=== PATIENT | female | born 1960 | race Native Hawaiian/Other Pacific Islander ===

== ENCOUNTER 2018-07-06 08:58 | Outpatient (CLI) | payer OTHER ==
[2018-07-06 10:14] LABS: PLATELET COUNT 296 K/uL (152-353)
[2018-07-06 10:30] LABS: POTASSIUM 3.8 mmol/L (3.6-5.2)
== END 2018-07-06 21:13 | disposition home or self-care (01) ==
LOC: LABW 08:58
PROVIDERS: Emergency Medicine
DX: I82.499 Acute embolism and thrombosis of other specified deep vein of unspecified lower extremity (principal); I10 Essential (primary) hypertension; M50.20 Other cervical disc displacement, unspecified cervical region
CPT/HCPCS: 36415; 80053; 80061; 84436; 84443; 84479; 85027

== ENCOUNTER 2018-08-29 11:00 | Outpatient (CLI) | payer OTHER ==
[2018-08-29 11:29] LABS: POTASSIUM 3.7 mmol/L (3.6-5.2)
== END 2018-08-29 22:42 | disposition home or self-care (01) ==
LOC: LABW 11:00
PROVIDERS: Physician Assistant Medical
DX: I10 Essential (primary) hypertension (principal); M54.5 Low back pain; Z79.899 Other long term (current) drug therapy
CPT/HCPCS: 36415; 80053; 83036

== ENCOUNTER 2021-12-13 19:57 | Inpatient (IN) | payer OTHER ==
[2021-12-13] VITALS (8 sets, daily range): BP systolic 113–149; BP diastolic 76–94; TEMP 100.6
[~2021-12-13] VITALS: Ht 152.4 cm; Wt 37.7 kg
[2021-12-13 20:51] LABS: PLATELET COUNT 459 K/uL (152-353)
[2021-12-13 21:00] LABS: POTASSIUM 3.8 mmol/L (3.6-5.2)
[2021-12-14 04:00] VITALS: BP 122/81; TEMP 98.4
[2021-12-14 05:08] VITALS: BP 117/83; TEMP 98.9; Ht 152.4 cm; Wt 37.7 kg
[2021-12-14 08:00] VITALS: BP 124/80; TEMP 97.6
[2021-12-14 12:00] VITALS: BP 118/72; TEMP 98.2
[2021-12-14 16:00] VITALS: BP 135/76; TEMP 97.6
[2021-12-14] MEDS ORDERED: PROAIR HFA108 MCG/AC INH (16:16)
[2021-12-14] MEDS ORDERED: AMLODIPINE BESYLATE PO (16:17)
[2021-12-14] MEDS ORDERED: PREGABALIN75 MG PO (16:18)
[2021-12-14] MEDS ORDERED: EUTHYROX75 MCG PO (16:19)
[2021-12-14] MEDS ORDERED: ZESTRIL40 MG PO (16:19)
[2021-12-14] MEDS ORDERED: IBU800 MG PO (16:20)
[2021-12-14] MEDS ORDERED: ZOLPIDEM PO (16:21)
[2021-12-14] MEDS ORDERED: OXYCODONE30 MG PO (16:23)
[2021-12-14 20:00] VITALS: BP 119/80; TEMP 97.9
[2021-12-15 00:14] VITALS: BP 131/85; TEMP 97.7
[2021-12-15 04:00] VITALS: BP 138/81; TEMP 97.7
[2021-12-15 05:37] LABS: PLATELET COUNT 389 K/uL (152-353)
[2021-12-15 05:56] LABS: POTASSIUM 3.5 mmol/L (3.6-5.2)
[2021-12-15 08:00] VITALS: BP 138/71; TEMP 98
[2021-12-15 12:00] VITALS: BP 120/77; TEMP 98.5
[2021-12-15 16:00] VITALS: BP 128/75; TEMP 98.2
[2021-12-15 20:18] VITALS: BP 133/81; TEMP 98.6
[2021-12-16 00:08] VITALS: BP 130/82; TEMP 98.5
[2021-12-16 04:27] VITALS: BP 120/77; TEMP 98.8
[2021-12-16 08:00] VITALS: BP 141/75; TEMP 99.1
[2021-12-16 12:00] VITALS: BP 138/68; TEMP 98.8
[2021-12-16 20:00] VITALS: BP 98/64; TEMP 98.5
[2021-12-17] VITALS: BP 103/72; TEMP 97.6
[2021-12-17 04:00] VITALS: BP 108/77; TEMP 97.6
[2021-12-17 04:39] LABS: PLATELET COUNT 321 K/uL (152-353)
[2021-12-17 04:53] LABS: POTASSIUM 2.7 mmol/L (3.6-5.2)
[2021-12-17 08:00] VITALS: BP 109/74; TEMP 98.2
[2021-12-17 12:00] VITALS: BP 112/68; TEMP 98.4
== END 2021-12-17 16:45 | disposition home or self-care (01) | DRG 177 ==
LOC: ED 19:57 → MED/SURG 22:20
PROVIDERS: Emergency Medicine Emergency Medical Services; Internal Medicine Endocrinology, Diabetes & Metabolism; ADMIT Internal Medicine; ATTEND Internal Medicine
DX: U07.1 COVID-19 (principal); J96.21 Acute and chronic respiratory failure with hypoxia; M62.81 Muscle weakness (generalized); J12.82 Pneumonia due to coronavirus disease 2019; J44.0 Chronic obstructive pulmonary disease with (acute) lower respiratory infection; G45.8 Other transient cerebral ischemic attacks and related syndromes; E46 Unspecified protein-calorie malnutrition; Z72.0 Tobacco use; I10 Essential (primary) hypertension; R26.81 Unsteadiness on feet; E03.8 Other specified hypothyroidism; G89.4 Chronic pain syndrome; Z99.81 Dependence on supplemental oxygen; Z68.1 Body mass index [BMI] 19.9 or less, adult
CPT/HCPCS: 36415; 80053; 83605; 83690; 83735; 84132; 84484; 85027; 87040; 87502; 87635; 93005; 94760; 96360; 96361; 96365; 96366; 96374; 96375; 99284; J0248; J0456; J0696; J1100; J1650; J1956; J2405; J2920; J2930; J3475; U0003

== ENCOUNTER 2023-03-15 21:08 | Emergency (ER) | payer OTHER ==
[~2023-03-15] VITALS: Ht 162.6 cm; Wt 47.6 kg
[~2023-03-15 21:08] MED LIST: AMLODIPINE BESYLATE PO; EUTHYROX75 MCG PO; IBU800 MG PO; OXYCODONE30 MG PO; PREGABALIN75 MG PO; PROAIR HFA108 MCG/AC INH; ZESTRIL40 MG PO; ZOLPIDEM PO
[2023-03-15 21:33] VITALS: TEMP 97.4
[2023-03-15 22:29] LABS: POTASSIUM 3.1 mmol/L (3.6-5.2)
[2023-03-15 22:32] LABS: PLATELET COUNT 260 K/uL (152-353)
[2023-03-16 05:30] VITALS: BP 119/86
== END 2023-03-16 05:30 | disposition short-term general hospital (02) ==
LOC: ED 21:08
PROVIDERS: Emergency Medicine
DX: T42.6X1A Poisoning by other antiepileptic and sedative-hypnotic drugs, accidental (unintentional), initial encounter (principal); J44.9 Chronic obstructive pulmonary disease, unspecified; R41.82 Altered mental status, unspecified; F17.210 Nicotine dependence, cigarettes, uncomplicated; I82.499 Acute embolism and thrombosis of other specified deep vein of unspecified lower extremity
CPT/HCPCS: 36415; 36600; 51702; 80053; 80143; 80179; 80307; 80320; 81002; 82805; 83605; 83880; 84484; 85027; 85610; 85730; 87040; 87502; 93005; 94664; 96361; 96374; 96375; 99285; J2310; J2930; J3490; Q9963

== ENCOUNTER 2023-04-18 14:25 | Inpatient (IN) | payer OTHER ==
[~2023-04-18] VITALS: Ht 152.4 cm; Wt 33.1 kg
[2023-04-18 14:25] VITALS: BP 149/98; TEMP 98.2
[2023-04-18 14:56] LABS: PLATELET COUNT 355 K/uL (152-353)
[2023-04-18 14:59] LABS: POTASSIUM 3.9 mmol/L (3.6-5.2); SODIUM 123 mmol/L (136-145)
[2023-04-18 15:30] VITALS: BP 143/89
[2023-04-18 16:30] VITALS: BP 133/82
[2023-04-18 17:30] VITALS: BP 133/82
[2023-04-18 18:30] VITALS: BP 131/86
[2023-04-19] VITALS (7 sets, daily range): BP systolic 125–161; BP diastolic 73–94; TEMP 97.7–98.8; Ht 152.4 cm; Wt 33.1 kg
[2023-04-19 05:10] LABS: PLATELET COUNT 297 K/uL (152-353)
[2023-04-19 05:31] LABS: POTASSIUM 3.5 mmol/L (3.6-5.2); SODIUM 130 mmol/L (136-145)
[2023-04-19] MEDS ORDERED: OMEP40CA PO (11:48)
[2023-04-19] MEDS ORDERED: METHOCARBAMOL PO (11:48)
[2023-04-19 18:57] LABS: POTASSIUM 3.4 mmol/L (3.6-5.2)
[2023-04-20] VITALS: BP 124/80; TEMP 98.4
[2023-04-20 04:00] VITALS: BP 136/78; TEMP 98.7
[2023-04-20 04:47] LABS: PLATELET COUNT 284 K/uL (152-353)
[2023-04-20 05:22] LABS: POTASSIUM 3.9 mmol/L (3.6-5.2); SODIUM 138 mmol/L (136-145)
[2023-04-20 08:08] VITALS: BP 135/84; TEMP 98.8
[2023-04-20 12:00] VITALS: BP 138/87; TEMP 98.6
== END 2023-04-20 14:30 | disposition home or self-care (01) | DRG 191 ==
LOC: ED 14:25 → MED/SURG 18:22
PROVIDERS: Emergency Medicine; ADMIT Family Medicine; ATTEND Family Medicine
DX: J44.9 Chronic obstructive pulmonary disease, unspecified (principal); E87.1 Hypo-osmolality and hyponatremia; F17.210 Nicotine dependence, cigarettes, uncomplicated
CPT/HCPCS: 36415; 80048; 80053; 81000; 82550; 83735; 84100; 84134; 84484; 85027; 85610; 85730; 87040; 94664; 94760; 96361; 96367; 96372; 96374; 96375; 99221; 99284; G0378; J0456; J1200; J1650; J2920; J3475; J3490; Q9963